=== PATIENT | female | born 1945 | race Caucasian/White ===

== ENCOUNTER → 2020-05-31 | Outpatient (CLI) | payer MEDICARE ==
[~2020-05-31] MED LIST: OMNIPAQUE 350 MG/ML, 150 ML BOTTLE ONE
== END | disposition home or self-care (01) ==
LOC: RAD 12:50
PROVIDERS: ATTEND Surgery
DX: K76.0 Fatty (change of) liver, not elsewhere classified (principal); N28.1 Cyst of kidney, acquired; M62.08 Separation of muscle (nontraumatic), other site; I70.0 Atherosclerosis of aorta; I82.412 Acute embolism and thrombosis of left femoral vein; K83.8 Other specified diseases of biliary tract; R60.0 Localized edema; I82.422 Acute embolism and thrombosis of left iliac vein
CPT/HCPCS: 74177; Q9967